=== PATIENT | male | born 1945 | race Caucasian/White ===

== ENCOUNTER 2018-10-19 10:29 | Emergency (ER) | payer OTHER, MEDICARE ==
[~2018-10-19] VITALS: Ht 167.6 cm; Wt 83.2 kg
[2018-10-19 11:14] LABS: BASO % 0.2 % (0.0-1.0); HEMATOCRIT 42.5 % (42.0-52.0); HEMOGLOBIN 15.1 g/dl (13.5-17.5); LYMPH # 0.5 10^3/uL (1.5-4.5); LYMPH % 5.2 % (24.0-44.0); MEAN CORPUSCULAR HEMOGLOBIN 32.6 pg (27.0-33.0); MEAN CORPUSCULAR HGB CONC 35.5 g/dl (32.0-36.5); MEAN CORPUSCULAR VOLUME 91.8 fl (80.0-96.0); MONO # 0.7 10^3/uL (0.0-0.8); MONO % 6.2 % (0.0-5.0); NEUTROPHILS # 9.2 10^3/uL (1.8-7.7); NEUTROPHILS % 87.9 % (36.0-66.0); PLATELET COUNT, AUTOMATED 226 10^3/uL (150-450); RED BLOOD COUNT 4.63 10^6/uL (4.30-6.10); WHITE BLOOD COUNT 10.5 10^3/uL (4.0-10.0)
[2018-10-19] MEDS ORDERED: FLON1SPR (11:42)
[2018-10-19] MEDS ORDERED: AMLO25TA PO (11:42)
[2018-10-19] MEDS ORDERED: SYMB16INH INH (11:42)
[2018-10-19] MEDS ORDERED: AZEL1SPR3 NARES (11:42)
[2018-10-19] MEDS ORDERED: BENA20TA PO (11:42)
[2018-10-19] MEDS ORDERED: MONT10TA2 PO (11:42)
[2018-10-19] MEDS ORDERED: B-12100020 PO (11:42)
[2018-10-19] MEDS ORDERED: ROPI0.253 PO (11:42)
--- NOTE | 2018-10-19 11:45 | REP ---
REASON: Near syncopal episode. COMPARISON: None. The technique utilized in obtaining the radiograph has magnified the cardiac silhouette and accentuated the interstitial markings. There is evidence of interstitial fibrotic change accentuated by technique and basilar predominance. The pleural angles are sharp and the heart is not enlarged. The osseous structures are within normal limits. IMPRESSION: Chronic changes as described above. Electronically Signed by Vishal Carrizales DO 10/19/2018 03:30 P
[2018-10-19 11:50] LABS: BLOOD UREA NITROGEN 16 MG/DL (7-18); CALCIUM LEVEL 8.5 MG/DL (8.8-10.2); CARBON DIOXIDE LEVEL 24 MEQ/L (21-32); CHLORIDE LEVEL 101 MEQ/L (98-107); CK-MB VALUE MASS 2.2 NG/ML (<3.6); CPK CREATINE PHOSPHOKINASE 513 U/L (39-308); CREATININE FOR GFR 0.96 MG/DL (0.70-1.30); GLOMERULAR FILTRATION RATE > 60.0 (>42); GLUCOSE, FASTING 99 MG/DL (70-100); MB/CK RELATIVE INDEX 0.43 (< OR =4); POTASSIUM SERUM 3.8 MEQ/L (3.5-5.1); SODIUM LEVEL 132 MEQ/L (136-145); THYROID STIMULATING HORMONE 0.465 uIU/ML (0.358-3.740); TROPONIN I < 0.02 NG/ML (< 0.10)
[2018-10-19] MEDS: NS 1,000 ML IV SCH ×3 (12:07→20:08)
[2018-10-19 15:39] LABS: ALBUMIN 3.7 GM/DL (3.2-5.2); ALT/SGPT 44 U/L (12-78); BILIRUBIN,DIRECT < 0.1 MG/DL (0.0-0.2); BILIRUBIN,TOTAL 0.3 MG/DL (0.2-1.0); TOTAL PROTEIN 7.5 GM/DL (6.4-8.2)
[2018-10-19 22:45] VITALS: BP 161/79
[2018-10-20] MEDS: NS 1,000 ML IV SCH (00:12)
--- NOTE | 2018-10-20 06:06 | ECGEPIP ---
[facility] - ED Test Date: 2018-10-19 Pat Name: LORIE LINO Department: Room: - Gender: Male [place] [employer] Operator: ANDERSON : 1945 Requested By: Milena Danielle Order Number: [id number] Reading MD: Reno Douglass Measurements Intervals [place] Rate: 98 P: 72 MI: 194 QRS: 7 QRSD: 92 T: 31 QT: 347 QTc: 443 Interpretive Statements SINUS RHYTHM POSSIBLE LEFT ATRIAL ENLARGEMENT NONSPECIFIC T-WAVE ABNORMALITY NO PRIORS FOR COMPARISON Electronically Signed on 10-20-2018 6:06:09 EDT by Reno Douglass
[2018-10-20] MEDS ORDERED: FLAG500T PO (08:41)
== END 2018-10-20 00:15 | disposition home or self-care (01) ==
LOC: M ED 10:29
DX: A02.9 Salmonella infection, unspecified (principal); R19.7 Diarrhea, unspecified; I10 Essential (primary) hypertension; J44.9 Chronic obstructive pulmonary disease, unspecified; Z87.891 Personal history of nicotine dependence; Z79.899 Other long term (current) drug therapy; Z88.0 Allergy status to penicillin